=== PATIENT | male | born 1980 ===

== ENCOUNTER 2024-10-16 11:24 | Emergency (ER) | payer OTHER, SELFPAY ==
--- NOTE | ~2024-10-16 | XR_ITS ---
EXAMINATION: XR KNEE, RIGHT CLINICAL INFORMATION: pain COMPARISON: None available. TECHNIQUE: Four views of the right knee. FINDINGS: No fracture, dislocation, or suspicious bone lesion. Joint spaces are preserved. Alignment is normal. Large suprapatellar joint effusion noted. There may be early/subtle chondrocalcinosis present. Soft tissues appear normal. XR/XR knee RT 4V IMPRESSION: No acute bony abnormalities. Large suprapatellar joint effusion. Query early/subtle chondrocalcinosis. Electronically signed by: Claude Vargas MD 10/16/2024 12:24 PM EDT
[2024-10-16 11:39] VITALS: BP 147/79; PULSE 63; RESP 16; TEMP 36.3; O2SAT 99; BMI 35.2
--- NOTE | 2024-10-16 11:42 | ED.GENADULT ---
HPI - General Adult General Chief complaint: Extremity Injury, Lower Stated complaint: R Knee Injury 09/29/24 Time Seen by Provider: 10/16/24 11:54 Source: patient Mode of arrival: ambulatory Limitations: no limitations History of Present Illness ED Provider: Neida Baker PA-C HPI narrative: 44 y/o male presents to the ER for evaluation of right knee pain that has been present for the last 3 weeks. pain started when walking down stairs at work. it locked up and was clicking. no falls. he has been wearing a compressive knee brace, taking NSAIDs and ice/elevating the knee with ongoing pain. 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 he called his PCP for referral to orthopedics for further evaluation however there have been insurance issues. the last 2 days have been worsening pain and tightness/swelling in his quadricep. MD complaint: right knee pain Onset (ago): week(s) Location: right and lower extremity Radiation: non-radiation Severity: moderate Quality: aching Pain Consistency: constant Exacerbating factors: cold therapy Associated symptoms: denies other symptoms Treatments prior to arrival: NSAID Related Data Allergies Allergy/AdvReac Type Severity Reaction Status Date / Time No Known Allergies Allergy Verified 10/16/24 11:40 Physical Exam ED Vital Signs: Vital Signs - 24 hr 10/16/24 11:39 10/16/24 12:41 Temperature 97.3 F 97.3 F Pulse Rate 63 63 Respiratory Rate 16 16 Blood Pressure 147/79 H 147/79 H Pulse Oximetry 99 99 Oxygen Delivery Method Room Air Room Air BMI result Body Mass Index 35.2 Appearance: Alert. Oriented X3. No acute distress. HEENT: normal inspection Respiratory: No respiratory distress. Skin: Skin warm and dry. Normal skin color. No rashes. Extremities: right knee in flexion, knee brace in place. ambulatory. Neuro: Oriented X 3. grossly normal, nonfocal Course Course Course Narrative: RME, this is a rapid medical exam performed by Bayron Mccormick please refer to primary provider for complete H&P- 44-year-old male presents for evaluation of pain to the right knee for the last 2-1/2 weeks. He reports his pain started while he was walking down the stairs. He denies any twisting injury or fall. His symptoms have been waxing and waning in intensity. he has tried to follow up as an outpatient with Orthopedics but was unable to do so due to insurance issues. Medical Decision Making Medical Decision Making MDM Narrative: 44 yo male presenting to the ER for evaluation of acute on chronic right knee pain. symptoms exacerbated when walking down stairs with clicking and locking up. possible meniscus injury? XR today with suprapatellar effusion, possible chondrocalcinosis. no erythematous or warm to suggest infection. orthopedics to see in the office. stable for d/c home Differential Diagnosis Differential Diagnoses: The differential diagnosis associated with the presentation includes arthritis, effusion, meniscus tear, knee sprain, torn ligament Consult Healthcare Provider Management of the patient was discussed with: Behavioral Health Technician shayy from ortho Independent Interpretation I performed an independent interpretation of an: Plain X-Ray Interpretation: no acute fracture, no significant arthritic changes appreciated Radiology Impression Discussion of test interpretation with radiology: I have reviewed the radiologist's reading. Radiologist Impression: XR/XR knee RT 4V IMPRESSION: No acute bony abnormalities. Large suprapatellar joint effusion. Query early/subtle chondrocalcinosis. Independent Historian Clinical information obtained from an independent historian. History obtained from or confirmed by: Spouse Prescription Management I considered prescription management with: Pain Medication Discharge Plan Discharge Clinical Impression: Knee pain, right Qualifiers: Chronicity: acute Qualified Code(s): M25.561 - Pain in right knee Effusion of knee Qualifiers: Laterality: right Qualified Code(s): M25.461 - Effusion, right knee Patient Disposition: Home, Self-Care Instructions: Knee Pain (ED) Additional Instructions: xrays were done of your knee recommend following up with orthopedics for further evaluation and treatment - call for an appointment continue NSAIDS as needed rest, ice and elevate as much as possible. If you develop new or worsening symptoms call 911 or come back to the ER for further evaluation. Referrals: [facility] [Provider Group] (right knee pain) George Fajardo PA [Primary Care Provider] - Interventions: ED Discharge Assessment Last Done: 10/16/24 12:41 Discharge Date/Time: 10/16/24 12:41 Print Language: Choose Not To Answer
--- OUTSIDE RECORDS SUMMARY | 2024-10-16 12:40 | XMS_ITS | Clinical Summary ---
Author Organization [facility] Address [address] [id number] Care Team Providers Care Second Shift Supervisor Name Role Phone George Fajardo PA-C Primary Care Provider [phone] Allergies No known active allergies Medications Medication Sig Dispensed Refills Start Date End Date Status predniSONE (DELTASONE) tablet 20 mg Take 1 tablet (20 mg total) by mouth 2 (two) times a day. 6 tablet 0 02/07/2023 Active Nebivolol HCl (Bystolic) 20 MG TABSIndications:Essent ial hypertension Take 1 tablet (20 mg total) by mouth daily. 90 tablet 1 10/21/2023 Active Active Problems Problem Noted Date Diagnosed Date Essential hypertension 06/18/2022 Immunizations Name Administration Dates Next Due Boostrix (Tdap) 07/17/2022 Family History Medical History Relation Name Comments Hypertension Father Relation Name Status Comments Father Social History Tobacco Use Types Packs/Day Years Used Date Smoking Tobacco: Never Tobacco Cessation:Counseling Given: Not Answered Alcohol Use Standard Drinks/Week Comments Yes 0 (1 standard drink = 0.6 oz pur e alcohol) Sex and Gender Information Value Date Recorded Sex Assigned at Not on file Gender Identity Not on file Sexual Orientation Not on file Job Start Date Occupation Industry Not on file Not on file Not on file Last Filed Vital Signs Vital Sign Reading Time Taken Comments Blood Pressure 173/101 02/07/2023 11:41 AM EDT Pulse 44 02/07/2023 11:41 AM EDT Temperature 37.1 ??C (98.8 ??F) 02/07/2023 11:41 AM E DT Respiratory Rate - - Oxygen Saturation 99% 02/07/2023 11:41 AM EDT Inhaled Oxygen Concentration - - Weight 104.3 kg (230 lb) 02/07/2023 11:41 AM EDT Height 182.9 cm (6') 07/17/2022 10:03 AM EST Body Mass Index 31.19 07/17/2022 10:03 AM EST Plan of Treatment Health Maintenance Due Date Last Done Comments Hepatitis B Vaccines (1 of 3 - 3-dose series) 1982 COVID-19 Vaccine (#1) 02/24/1983 Depression Screening 1994 BMI Counseling 2000 Preventative Health Evaluation 07/17/2023 07/17/2022 Influenza Vaccine (#1) 2024 DTap / Tdap / Td (2 - Td or Tdap) 07/17/2032 023 Hepatitis C Screening Completed 07/17/2022 Pneumococcal Vaccine Aged Out No long er eligible based on patient's age to complete this topic RSV Ped < 20 months Aged Out No longe r eligible based on patient's age to complete this topic Care Teams Second Shift Supervisor Relationship Specialty Start Date End Date George Fajardo PA-C PCP - General Line Producer 06/18/22
--- OUTSIDE RECORDS SUMMARY | 2024-10-16 12:40 | XMS_ITS ---
Author Name [facility] Organization Unknown Encounters Encounter Type Encounter Reason Primary Diagnosis Location Date Ambulatory [facility] 03/17/2024 Care Team Organization Name Specialty Phone Email Start Date End Da te [facility] 2024
--- OUTSIDE RECORDS SUMMARY | 2024-10-16 12:40 | XMS_ITS | Clinical Summary ---
Author Organization [facility] Address [address] [place] [address] Care Team Providers Care Customer Account Specialist Name Role Phone Rikki Castorena MD Primary Care Provider [phone] Rikki Castorena MD Unavailable [phone] Social History Tobacco Use Types Packs/Day Years Used Date Smoking Tobacco: Never Assessed Sex and Gender Information Value Date Recorded Sex Assigned at Not on file Legal Sex Male 9:44 PM EDT Gender Identity Not on file Sexual Orientation Not on file Plan of Treatment Health Maintenance Due Date Last Done Comments Hepatitis C Screening 1982 DTaP/Tdap/Td (1 - Tdap) 2000 Hep B (1 of 3 - 19+ 3-dose series) 2001 COVID-19 Vaccine (2023-2 5 season) 2024 Influenza (#1) 2024 Zoster (Shingrix) (1 of 2) 2032 HPV Vaccine Aged Out No longer eligi ble based on patient's age to complete this topic Hep A Aged Out No longer eligi ble based on patient's age to complete this topic Hib Aged Out No longer eligi ble based on patient's age to complete this topic Meningococcal ACWY Aged Out No longer eligible based on patient's age to complete this topic Pneumococcal Aged Out No longer eligi ble based on patient's age to complete this topic Care Teams Customer Account Specialist Relationship Specialty Start Date End Date Rikki Castorena MD [address] [place] [address] PCP - General 01/11/23 Rikki Castorena MD [address] [place] [address] PCP - Backup PCP Internal Medicine 07/07/23
[2024-10-16 12:41] VITALS: BP 147/79; PULSE 63; RESP 16; TEMP 36.3; O2SAT 99
== END 2024-10-16 12:41 | disposition home or self-care (01) ==
PROVIDERS: Emergency Provider Emergency Medicine Emergency Medical Services; PCP Physician Assistant Medical
DX: M25.561 Pain in right knee (principal); M25.461 Effusion, right knee
CPT/HCPCS: 73564; 99283; 99284

== ENCOUNTER → 2024-10-16 12:00 | Outpatient (BNV) | payer OTHER, SELFPAY | PROVIDERS: Emergency Provider Emergency Medicine Emergency Medical Services; PCP Physician Assistant Medical; Visit Provider Radiology Diagnostic Radiology | DX: M25.461 Effusion, right knee (principal) | CPT/HCPCS: 73564 ==

== ENCOUNTER 2024-10-27 14:57 | Outpatient (AMB) | payer OTHER, SELFPAY ==
--- NOTE | 2024-10-27 14:58 | MHC.OFFVIS ---
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 Expresses the pain has been present for roughly one week. Pain started when walking down stairs. States his knee locks up and occasionally clicks. No falls. He has been wearing a compressive knee brace and taking NSAIDs with relief. 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 Expresses he is being overly cautious to avoid further injury. Sharp pain on medial side of knee, unsure of any past injury of knees. interested in possible injection. 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 Expresses the pain has been present for roughly one week. Pain started when walking down stairs. States his knee locks up and occasionally clicks. No falls. He has been wearing a compressive knee brace and taking NSAIDs with relief. 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 Expresses he is being overly cautious to avoid further injury. Sharp pain on medial side of knee, unsure of any past injury of knees. interested in possible injection. 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[employer] Review of Systems Const All systems reviewed & are unremarkable except as noted in HPI and below Physical Exam Extrem Other: Patient's right knee normal to inspection No erythema, ecchymosis, edema noted No lacerations, abrasions, open areas No evidence of infection Tenderness to palpation of the medial joint line of the right knee noted Patient reports no tenderness to palpation of the in the lateral joint line, posterior knee, quad tendon, patellar tendon Mildly positive Anselmo's test on the right Distal sensation intact Capillary refill brisk Results Reviewed Results Reviewed: X-rays obtained in the ED and independently reviewed by me, Luis F Carpenter PA-C, demonstrate mild osteoarthritis and trace chondrocalcinosis of the right knee. Assessment & Plan Assessment & Plan (1) Internal derangement of right knee: Code(s): M23.91 - Unspecified internal derangement of right knee Category: Medical Plan 1. Internal derangement of right knee 2. Chondrocalcinosis of right knee Patient is educated about this condition Patient is educated about the treatment options available Patient would like to proceed with steroid injection The risks and benefits of a steroid injection including but not limited to risk of damage to blood vessels, nerves, tendons, infection, skin bleaching, failure to improve symptoms, increased pain, and possible need for further injections or other intervention were discussed with the patient and the patient wishes to proceed with the steroid injection. Once consent was obtained, I aseptically prepped the area over the anterolateral joint line of the right knee. I then injected the area over the lateral epicondyle with a combination of 80 mg of dexamethasone and 8 mL of 1% lidocaine. The patient tolerated the procedure well with no complications. If the patient continues to experience symptoms over the following few weeks or months, they can make an appointment to return and discuss alternative treatment measures, such as physical therapy. Follow-up prn Orders: Orders PT Evaluation and Treatment Today M23.91 - Unspecified internal derangement of right knee Coding Level of Care Code New Pt Level 3 (31208) Diagnoses Internal derangement of right knee M23.91
--- OUTSIDE RECORDS SUMMARY | 2024-10-27 14:59 | XMS_ITS | Clinical Summary ---
Author Organization [facility] Address [address] [place] [address] Care Team Providers Care Gastroenterology Physician Name Role Phone Rikki Castorena MD Primary Care Provider [phone] Rikki Castorena MD Unavailable [phone] Social History Tobacco Use Types Packs/Day Years [...] age to complete this topic Care Teams Gastroenterology Physician Relationship Specialty Start Date End Date Rikki Castorena MD [address] [place] [address] PCP - General 01/11/23 Rikki Castorena MD [address] [place] [address] PCP - Backup PCP Internal Medicine 07/07/23
== END 2024-10-27 15:38 | disposition home or self-care (01) ==
LOC: HO.HOS 14:58
PROVIDERS: PCP Internal Medicine
DX: M23.91 Unspecified internal derangement of right knee (principal)
CPT/HCPCS: 20610; 99203

== ENCOUNTER → 2024-10-27 14:57 | Outpatient (BNVA) | payer OTHER, SELFPAY | PROVIDERS: PCP Internal Medicine | DX: M23.91 Unspecified internal derangement of right knee (principal); M11.261 Other chondrocalcinosis, right knee | CPT/HCPCS: 20610; J1010; J2003 ==